=== PATIENT | male | born 1965 | race Caucasian/White ===

== ENCOUNTER 2016-07-25 03:05 | Emergency (ER) | payer OTHER ==
--- NOTE | ~2016-07-25 | CR94 ---
[facility] A Service of [facility] RADIOLOGY TEXT RESULTS PATIENT: LUÍS POLLARD LOCATION: SED : 61 UNIT #: [id number] AGE: [address]: Rojas Ring MD SEX: M ORDER DR: [id number] [place] [address] [id number] MR#: [id number] Acc #: [id number] NAME: LUÍS POLLARD : 1965 SEX: M STUDY DATE/TIME: 07/25/2016 03:30 UNIT: SED ROOM: STUDY DESCRIPTION: CR Elbow Min 3 Views Rt Attending Physician: Rojas Ring M.D. Ordering Physician: Rojas Ring M.D. Primary Care Physician: Vidal Desai M.D. MEDICAL IMAGING REPORT This report is preliminary unless electronic signature is present. EXAM Right elbow, 07/25 at 03:30 INDICATIONS History of laceration 7 days ago. Patient now has right antecubital fossa abscess. FINDINGS 3 views of the elbow were obtained. No fracture or malalignment is seen. There is no joint effusion. There is no radiographic evidence of osteomyelitis. No radiopaque foreign body. IMPRESSION Negative exam. There is no fracture, joint effusion, soft tissue gas, or radiopaque foreign body. Dictated by... Emmanuel Canas Jr., M.D. THIS IS AN ELECTRONICALLY VERIFIED REPORT Emmanuel Canas Jr., M.D. at 07/25/2016 9:32 PM RLK/chetan TD: 07/25/2016 16:37 JOB #: [id number] MEDICAL IMAGING REPORT
[~2016-07-25 03:05] MED LIST: ATARAX PO; BACTRIM DS TABL1 TA1 PO; BACTRIM DS TABL1 TA2; IBUPROFEN800 MG PO; LOTRIMIN 1% CR30 GM EXT; NO MEDICATIONS; TRIAMCINOLONE A15 G3 EXT; TRIAMCINOLONE AC1 GM EXT; VOLTAREN50 MG PO
[2016-07-25 03:26] LABS: BASOPHIL# 0.1 X10e3 (0-0.3); EOSINOPHIL# 0.2 X10e3 (0-0.7); EOSINOPHIL% 2.6 % (0.0-7.0); HEMATOCRIT 39.6 % (38.0-50.0); HEMOGLOBIN 13.5 gm/dL (13.0-16.0); LYMPHOCYTE# 1.2 X10e3 (1.0-3.5); LYMPHOCYTE% 14.3 % (17.0-45.0); MEAN CELL VOLUME 96.3 FL (83-96); MEAN CORPUSCULAR HEMOGLOBIN 32.7 PG (28-34); MEAN PLATELET VOLUME 7.5 FL (6.5-11.5); MONOCYTE# 0.7 X10e3 (0-1.0); NEUTROPHIL# 6.1 X10e3 (1.5-7.1); NEUTROPHIL% 74.1 % (40-75); PLATELET COUNT 249 X10e3 (140-420); RED BLOOD COUNT 4.11 X10e (3.90-5.60); RED CELL DISTRIBUTION WIDTH 12.8 % (11.0-15.5); WHITE BLOOD COUNT 8.3 X10e3 (4.0-10.5)
[2016-07-25 03:27] LABS: DIFF IND NO
[2016-07-25 03:42] LABS: ALBUMIN SERUM 3.8 g/dL (3.5-5.0); ALKALINE PHOSPHATASE 58 U/L (32-92); ALT (SGPT) 46 U/L (10-40); AST (SGOT) 41 U/L (10-42); BILIRUBIN, DIRECT 0.1 mg/dL (0.0-0.2); BILIRUBIN,INDIRECT 0.3 mg/dL (0.0-0.9); BILIRUBIN,TOTAL 0.4 mg/dL (0.2-2.0); BLOOD UREA NITROGEN 21 mg/dL (9-23); BUN/CREATININE RATIO 23.33; CARBON DIOXIDE 25 mmol/L (22-31); CHLORIDE 102 mmol/L (100-111); CREATININE SERUM 0.9 mg/dL (0.6-1.4); GLOM FILT RATE Estimated ABOVE60 mL/min (>60); GLUCOSE FASTING 129 mg/dL (70-110); PROTEIN TOTAL SERUM 7.1 g/dL (6.0-8.3); SODIUM 136 mmol/L (135-145)
== END 2016-07-25 05:08 | disposition home or self-care (01) ==
LOC: CED 03:05
PROVIDERS: Emergency Medicine
DX: L02.413 Cutaneous abscess of right upper limb (principal); Z86.19 Personal history of other infectious and parasitic diseases; F17.210 Nicotine dependence, cigarettes, uncomplicated
CPT/HCPCS: 36415; 73080; 80048; 80076; 85025; 87070; 87205; 90715; 96365; 96375; 99284; J1885; J3370

== ENCOUNTER 2016-07-26 15:10 | Emergency (ER) | payer OTHER | END 2016-07-26 16:00 | disposition left against medical advice (07) | LOC: CED 15:10 | DX: Z53.21 Procedure and treatment not carried out due to patient leaving prior to being seen by health care provider (principal) ==

== ENCOUNTER 2016-07-26 15:58 | Inpatient (IN) | payer OTHER ==
--- NOTE | ~2016-07-26 | HP ---
Unit #: [id number] #: [id number] Patient: LUÍS POLLARD [id number] [address] [place], [place] [address] [id number] I MR#: [id number] NAME: LUÍS POLLARD ROOM: 230 Age: 51 Sex: M Admission Date: 07/26/2016 : 1965 Attending Physician: Farshad Draper M.D. Primary Care Physician: Vidal Desai M.D. HISTORY AND PHYSICAL The patient is a 51-year-old white male, IV drug abuse, who has a small right antecubital access site that is infected. This spontaneously has drained itself; however, the patient does complain of pain and there appears to be an area that needs to be debrided. PAST MEDICAL HISTORY This patient has no drug allergies. He was on home medications to include Bactrim DS. He has had a history of hepatitis B and C. He has had previous blood disorder and noted liver and pancreas problems. He is a one pack per day smoker, no alcohol abuse at this time, although he does have the drug abuse. He does try to keep employed. REVIEW OF SYSTEMS He denies any major cardiovascular, respiratory, renal, metabolic diseases at present. PHYSICAL EXAMINATION VITAL SIGNS: Temperature 98 degrees, blood pressure 124/88, pulse 100, respirations 16. HEENT: ENT is clear. There is no jaundice. Pupils are equally reactive to light and accommodation. CHEST: Clear. CARDIAC: The rhythm is regular. No audible murmurs. ABDOMEN: Soft, nontender, no masses. EXTREMITIES: Full range of motion 1-2+ peripheral pulses bilaterally. No specific clubbing, cyanosis or edema. Right antecubital space noted, partially drained abscess as noted. NEUROLOGIC: Cranial nerves II-XII intact with no gross motor or sensory deficits. IMPRESSION Right antecubital space abscess. PLAN Risks have been explained to the patient, he understands and will proceed with completion of abscess drainage. Dictated by Ramon Rose/alayna Unit #: [id number] #: [id number] Patient: LUÍS POLLARD TD: 07/27/2016 06:51 JOB #: [id number] HISTORY AND PHYSICAL X Lev Colon MD HISTORY AND PHYSICAL
--- NOTE | ~2016-07-26 | OR ---
Unit #: [id number] #: [id number] Patient: LUÍS POLLARD [id number] [address] [address] [id number] I MR#: [id number] NAME: LUÍS POLLARD ROOM: 230 Date of Procedure: 07/27/2016 Admission Date: 07/26/2016 Surgeon: Emmanuel Zepeda M.D. : 1965 Attending Physician: Farshad Draper M.D. Primary Care Physician: Vidal Desai M.D. OPERATIVE REPORT PREOPERATIVE DIAGNOSIS Abscess, right antecubital fossa. POSTOPERATIVE DIAGNOSIS Abscess, right antecubital fossa. PROCEDURE PERFORMED Incision, drainage, and debridement of right antecubital fossa. Aerobic and anaerobic cultures sent. ANESTHESIA General endotracheal anesthesia. ESTIMATED BLOOD LOSS 20 mL. INDICATIONS FOR PROCEDURE A 51-year-old gentleman, who presented to the ER with an abscess in the right antecubital fossa. DESCRIPTION OF PROCEDURE The patient was transported from his hospital room to the operating room. After induction of general endotracheal anesthesia, the right arm was extended on an arm board and prepped and draped in usual sterile fashion. The abscess was opened and drained and then the necrotic and nonviable tissue was sharply debrided down into the subcutaneous tissues. Aerobic and anaerobic cultures were taken during the course of procedure. After we had completed the debridement, hemostasis obtained using the cautery device. Local anesthetic was infiltrated and then the wound was packed with a dressing sponge soaked in Betadine followed by dry sterile gauze and Kerlix wrap. Sponges and needle counts were correct x3. The patient tolerated the procedure well and transported to recovery in stable condition. There was no family available to talk to at the end of the case. He will be readmitted to his hospital room for further treatment and evaluation. Dictated by... Emmanuel Zepeda M.D. RS/modl Unit #: [id number] #: [id number] Patient: LUÍS POLLARD TD: 07/28/2016 04:05 JOB #: [id number] OPERATIVE REPORT X Emmanuel Zepeda MD PROCEDURE OPERATIVE NOTE
--- NOTE | ~2016-07-26 | DS ---
Unit #: [id number] #: [id number] Patient: LUÍS POLLARD [id number] [address] [place], [place] [address] [id number] I MR#: [id number] NAME: LUÍS POLLARD ROOM: 230 Age: 51 Sex: M Admission Date: 07/26/2016 : 1965 Discharge Date: 07/28/2016 Attending Physician: Farshad rDaper M.D. Primary Care Physician: Vidal Desai M.D. DISCHARGE SUMMARY DISCHARGE DIAGNOSIS Right antecubital abscess partially drained. OPERATIVE PROCEDURE Incision, drainage and debridement of right antecubital space abscess. DISCHARGE MEDICATIONS Home medications to include: 1. Bactrim DS one p.o. b.i.d. 2. Lortab 7.5 one p.o. q.4 h. p.r.n. pain. HISTORY OF PRESENT ILLNESS AND HOSPITAL COURSE A 51-year-old white male with right antecubital space abscess partially drained. Etiology is unclear. Initially it was felt like it may be drug related however the patient denies drug issues at this time and he said it is related to his work in some way. In either event the patient was admitted, taken to surgery. This was opened, drained and cleaned out. It was packed and treated with Bactroban postoperatively. The patient will be followed in our clinic. He can do his own dressing changes at home. FOLLOWUP He will be seen in the clinic for followup evaluation in approximately 7 to 10 days. Dictated by... Ramon Rose/geraldine TD: 07/28/2016 23:08 JOB #: [id number] Unit #: [id number] #: [id number] Patient: LUÍS POLLARD DISCHARGE SUMMARY X Lev Cooln MD X DISCHARGE SUMMARY
[2016-07-26 16:05] LABS: BASOPHIL# 0.1 X10e3 (0-0.3); BASOPHIL% 0.9 % (0-2.5); EOSINOPHIL# 0.2 X10e3 (0-0.7); EOSINOPHIL% 3.1 % (0.0-7.0); HEMATOCRIT 42.6 % (38.0-50.0); HEMOGLOBIN 14.2 gm/dL (13.0-16.0); LYMPHOCYTE# 1.3 X10e3 (1.0-3.5); LYMPHOCYTE% 16.9 % (17.0-45.0); MEAN CELL VOLUME 96.2 FL (83-96); MEAN CORPUSCULAR HEMOGLOBIN 32.2 PG (28-34); MEAN CORPUSCULAR HGB CONC 33.5 g/dL (30-36); MEAN PLATELET VOLUME 7.5 FL (6.5-11.5); MONOCYTE# 0.6 X10e3 (0-1.0); MONOCYTE% 8.2 % (3.0-12.0); NEUTROPHIL# 5.4 X10e3 (1.5-7.1); NEUTROPHIL% 70.9 % (40-75); PLATELET COUNT 285 X10e3 (140-420); RED BLOOD COUNT 4.42 X10e (3.90-5.60); RED CELL DISTRIBUTION WIDTH 12.9 % (11.0-15.5); WHITE BLOOD COUNT 7.7 X10e3 (4.0-10.5)
[2016-07-26 16:15] LABS: DIFF IND NO
[2016-07-26 16:36] LABS: ALBUMIN SERUM 4.5 g/dL (3.5-5.0); ALKALINE PHOSPHATASE 65 U/L (32-92); ALT (SGPT) 52 U/L (10-40); AST (SGOT) 45 U/L (10-42); BILIRUBIN,TOTAL 0.5 mg/dL (0.2-2.0); BLOOD UREA NITROGEN 20 mg/dL (9-23); CALCIUM SERUM 9.3 mg/dL (8.4-10.2); CARBON DIOXIDE 28 mmol/L (22-31); CHLORIDE 102 mmol/L (100-111); GLOM FILT RATE Estimated ABOVE60 mL/min (>60); GLUCOSE FASTING 110 mg/dL (70-110); SODIUM 138 mmol/L (135-145)
[2016-07-28] MEDS ORDERED: LORTAB 7.51 TAB PO (07:11)
== END 2016-07-28 12:14 | disposition home or self-care (01) | DRG 572 ==
LOC: CED 15:58 → CEDOF 16:02 → C2A 18:15
PROVIDERS: Nurse Practitioner; Specialist
PROC: 0JBG0ZZ Excision of Right Lower Arm Subcutaneous Tissue and Fascia, Open Approach (ICD-10-PCS; principal; 2016-07-27 14:00)
DX: L02.413 Cutaneous abscess of right upper limb (principal); B18.2 Chronic viral hepatitis C; F19.10 Other psychoactive substance abuse, uncomplicated; F17.210 Nicotine dependence, cigarettes, uncomplicated; Z86.19 Personal history of other infectious and parasitic diseases
CPT/HCPCS: 36415; 80053; 83605; 85025; 87040; 87070; 87075; 87205; 99285; J2250; J2270; J2405; J2543; J3010